=== PATIENT | female | born 1970 | race African-American/Black ===

== ENCOUNTER 2017-10-18 18:34 | Emergency (ER) | payer BC ==
[~2017-10-18] VITALS: Ht 172.7 cm; Wt 56.7 kg
[2017-10-18] MEDS ORDERED: LISINOPRIL-HCT1 EAC2 ORAL (18:55)
[2017-10-18 19:08] VITALS: BP 172/103
[2017-10-18] MEDS ORDERED: PEPCID40 MG PO (19:31)
[2017-10-18] MEDS ORDERED: ZOFRAN ODT4 MG ORAL (19:31)
--- NOTE | 2017-10-18 19:32 | Emergency Room Report ---
History of Present Illness General Chief Complaint: Nausea, Vomiting, and Diarrhea Source: Patient Present Illness HPI 47-year-old female with no sig pmhx p/w nausea vomiting, epigastric abd pain for one-day. Pt reports n/v, more than 7 episodes of nbnb vomiting, no diarrhea. Denies black or bloody stools. Patient states epigastric pain started gradually , localized to epigastric area , non radiating, burning in nature, intermittent. No relieving or exacerbating factors. Denies fever, chills. States that she has had a myomectomy in the past Is passing gas and stool Allergies: Uncoded Allergies: TAPE (Allergy, Unknown, 10/18/17) Patient History Past Medical History: see triage record Past Surgical History: none Pertinent Family History: none Last Menstrual Period: 10/04/2017 Reviewed Nursing Documentation: PMH: Agreed, PSxH: Agreed Nursing Documentation-PMH Past Medical History: No History, Except For Hx Hypertension: Yes Hx Cancer: Yes - Bilateral mastectomy Review of Systems All Other Systems: negative except mentioned in HPI Physical Exam Vital Signs Date Time Temp Pulse Resp B/P (MAP) Pulse Ox O2 Delivery O2 Flow Rate FiO2 10/18/17 18:50 98.3 74 16 172/103 98 Room Air 98.2 Sp02 EP Interpretation: reviewed, normal General Appearance: alert, GCS 15, non-toxic, mild distress Head: normocephalic, atraumatic Eyes: bilateral eye normal inspection, bilateral eye PERRL, bilateral eye EOMI ENT: normal ENT inspection, normal pharynx, normal voice, moist mucus membranes Neck: normal inspection, full range of motion, supple Respiratory: normal inspection, lungs clear, normal breath sounds, no respiratory distress, no retraction, no wheezing, speaking full sentences, chest symmetrical Cardiovascular #1: normal inspection, regular rate, rhythm, no edema, normal capillary refill Cardiovascular #2: 2+ radial (R), 2+ radial (L) Gastrointestinal: normal inspection, non tender, soft, non-distended, no guarding Musculoskeletal: normal inspection, back normal, normal range of motion, non- tender Neurologic: normal inspection, alert, oriented x3, responsive, motor strength/ tone normal, sensory intact, normal gait, speech normal Psychiatric: normal inspection, judgement/insight normal, memory normal Skin: normal inspection, normal color, no rash, warm/dry, well hydrated, normal turgor Medical Decision Making Diagnostic Impression: Primary Impression: Nausea and vomiting ER Course 39-year-old female with nausea and vomiting Differential Diagnosis: Gastritis, gastroenteritis, cholecystitis, appendicitis, diverticulitis, SBO, mesenteric ischemia, cardiac, UTI/pyelo At this time abdomen is soft nontender, not likely to have acute intra- abdominal surgical pathology, will hold CT for now. Plan: Basic labs, ua, ekg Pepcid, maalox, pain control, IVF ER course: Patient has remained stable during ED stay. Pain improved. Repeat abdominal exam is nontender. Tolerating PO given potassium Disposition: Patient is to be discharged to home. Prescriptions given are Pepcid and Zofran Patient is instructed to follow up with their primary care doctor within 5 days. Strict return precautions discussed with patient such as fever, chills, worsening/severe abdominal pain, nausea, vomiting, black or bloody stools, which may indicate severe illness. Patient verbalizes understanding and agrees with plan. Please note that this Emergency Department Report was dictated using [employer] technology software, occasionally this can lead to erroneous entry secondary to interpretation by the dictation equipment Laboratory Tests Test 10/18/17 19:55 White Blood Count 11.7 K/UL (4.8-10.8) H Red Blood Count 5.16 M/UL (4.20-5.40) Hemoglobin 11.3 G/DL (12.0-16.0) L Hematocrit 37.4 % (37.0-47.0) Mean Corpuscular Volume 73 FL (80-99) L Mean Corpuscular Hemoglobin 21.9 PG (27.0-31.0) L Mean Corpuscular Hemoglobin Concent 30.2 G/DL (32.0-36.0) L Red Cell Distribution Width 16.3 % (11.6-14.8) H Platelet Count 390 K/UL (150-450) Mean Platelet Volume 7.5 FL (6.5-10.1) Neutrophils (%) (Auto) 85.6 % (45.0-75.0) H Lymphocytes (%) (Auto) 10.4 % (20.0-45.0) L Monocytes (%) (Auto) 3.1 % (1.0-10.0) Eosinophils (%) (Auto) 0.0 % (0.0-3.0) Basophils (%) (Auto) 0.8 % (0.0-2.0) Urine Color Pale yellow Urine Appearance Clear Urine pH 8 (4.5-8.0) Urine Specific [place] 1.010 (1.005-1.035) Urine Protein Negative (NEGATIVE) Urine Glucose (UA) Negative (NEGATIVE) Urine Ketones 1+ (NEGATIVE) H Urine Occult Blood Negative (NEGATIVE) Urine Nitrite Negative (NEGATIVE) Urine Bilirubin Negative (NEGATIVE) Urine Urobilinogen Normal MG/DL (0.0-1.0) Urine Leukocyte Esterase 1+ (NEGATIVE) H Urine RBC 0-2 /HPF (0 - 2) Urine WBC 2-4 /HPF (0 - 2) Urine Squamous Epithelial Cells Few /LPF (NONE/OCC) Urine Bacteria Occasional /HPF (NONE) Urine HCG, Qualitative Negative Sodium Level 133 MMOL/L (136-145) L Potassium Level 2.6 MMOL/L (3.5-5.1) *L Chloride Level 96 MMOL/L (98-107) L Carbon Dioxide Level 27 MMOL/L (21-32) Anion Gap 10 mmol/L (5-15) Blood Urea Nitrogen 10 mg/dL (7-18) Creatinine 1.0 MG/DL (0.55-1.30) Estimate Glomerular Filtration Rate > 60 mL/min (>60) Glucose Level 126 MG/DL (74-106) H Calcium Level 9.9 MG/DL (8.5-10.1) Total Bilirubin 0.4 MG/DL (0.2-1.0) Aspartate Amino Transferase (AST) 20 U/L (15-37) Alanine Aminotransferase (ALT) 20 U/L (12-78) Alkaline Phosphatase 50 U/L (46-116) Total Protein 9.8 G/DL (6.4-8.2) H Albumin 4.7 G/DL (3.4-5.0) Globulin 5.1 g/dL Albumin/Globulin Ratio 0.9 (1.0-2.7) L Lipase 95 U/L (73-393) Last Vital Signs Date Time Temp Pulse Resp B/P (MAP) Pulse Ox O2 Delivery O2 Flow Rate FiO2 10/18/17 18:50 98.3 74 16 172/103 98 Room Air 98.2 Disposition: HOME, SELF-CARE Condition: Improved Scripts Famotidine (PEPCID) 40 Mg Tablet 40 MG PO DAILY, #7 TAB 0 Refills Prov: Alba Ornelas M.D. 10/18/17 Ondansetron Odt* (ZOFRAN ODT*) 4 Mg Tab.rapdis 4 MG ORAL Q6H Y for Nausea & Vomiting, #15 TAB 0 Refills Prov: Alba Ornelas M.D. 10/18/17 Patient Instructions: Nausea and Vomiting, Adult, [id number] Alba Ornelas M.D. Oct 18, 2017 19:32
[2017-10-18 20:18] LABS: APPEARANCE,URINE CLEAR; BILIRUBIN, URINE NEGATIVE (NEGATIVE); COLOR,URINE PALE YELLOW; GLUCOSE, URINE (UA) NEGATIVE (NEGATIVE); HEMATOCRIT 37.4 % (37.0-47.0); HEMOGLOBIN 11.3 G/DL (12.0-16.0); KETONES,URINE 1+ (NEGATIVE); LEUKOCYTE ESTERASE ,URINE 1+ (NEGATIVE); MEAN CORPUSCULAR VOLUME 73 FL (80-99); NITRITE,URINE NEGATIVE (NEGATIVE); PH,URINE 8 (4.5-8.0); PLATELET COUNT 390 K/UL (150-450); PROTEIN,URINE NEGATIVE (NEGATIVE); RED BLOOD COUNT 5.16 M/UL (4.20-5.40); RED CELL DISTRIBUTION WIDTH 16.3 % (11.6-14.8); UROBILINOGEN,URINE NORMAL MG/DL (0.0-1.0); WHITE BLOOD COUNT 11.7 K/UL (4.8-10.8)
[2017-10-18 20:20] LABS: NEUTROPHILS % (AUTO) 85.6 % (45.0-75.0)
[2017-10-18 20:23] LABS: BASOPHILS % (AUTO) 0.8 % (0.0-2.0); LYMPHOCYTES % (AUTO) 10.4 % (20.0-45.0); MONOCYTES % (AUTO) 3.1 % (1.0-10.0)
[2017-10-18 20:41] LABS: ALANINE AMINOTRANSFERASE 20 U/L (12-78); ALBUMIN 4.7 G/DL (3.4-5.0); ALBUMIN/GLOBULIN RATIO 0.9 (1.0-2.7); ALKALINE PHOSPHATASE 50 U/L (46-116); ANION GAP 10 mmol/L (5-15); ASPARTATE AMINO TRANSFERASE 20 U/L (15-37); BILIRUBIN,TOTAL 0.4 MG/DL (0.2-1.0); BLOOD UREA NITROGEN 10 mg/dL (7-18); CALCIUM 9.9 MG/DL (8.5-10.1); CARBON DIOXIDE 27 MMOL/L (21-32); CHLORIDE 96 MMOL/L (98-107); SODIUM 133 MMOL/L (136-145)
[2017-10-18 20:46] LABS: POTASSIUM 2.6 MMOL/L (3.5-5.1)
[2017-10-18 21:40] VITALS: BP 152/88
[2017-10-18 21:52] VITALS: BP 152/88
== END 2017-10-18 21:25 | disposition home or self-care (01) ==
LOC: EMR 19:42
DX: R11.2 Nausea with vomiting, unspecified (principal); I10 Essential (primary) hypertension; Z85.3 Personal history of malignant neoplasm of breast; Z90.13 Acquired absence of bilateral breasts and nipples
CPT/HCPCS: 36415; 80053; 81003; 81025; 83690; 85025; 96361; 96374; 96375; 99284; J2405; S0028; J8499